=== PATIENT | female | born 1995 | race Caucasian/White ===

== ENCOUNTER 2018-03-14 10:52 | Emergency (ER) | payer OTHER ==
[~2018-03-14] VITALS: Ht 165.1 cm; Wt 71.6 kg
[2018-03-14 10:52] VITALS: BP 129/81
[2018-03-14] MEDS ORDERED: BACITRACIN ZINC OINT 500U/GM, 0.9 GM ONE (11:55)
== END 2018-03-14 12:12 | disposition home or self-care (01) ==
LOC: ED 12:06
DX: Z48.01 Encounter for change or removal of surgical wound dressing (principal)
CPT/HCPCS: 99281